=== PATIENT | female | born 1945 | race Caucasian/White ===

== ENCOUNTER → 2021-09-24 | Outpatient (CLI) | payer MEDICARE | END | disposition home or self-care (01) | LOC: LAB SHORT 14:58 | DX: L30.8 Other specified dermatitis (principal) | CPT/HCPCS: 88305 ==

== ENCOUNTER 2021-10-16 13:13 | Emergency (ER) | payer MEDICARE ==
[~2021-10-16] VITALS: Ht 162.6 cm; Wt 65.8 kg
[2021-10-16] MEDS ORDERED: LEVOTHYROXINE50 MC7 PO (15:15)
[2021-10-16] MEDS ORDERED: CALCIUM 500 MG1 EAC2 PO (15:16)
[2021-10-16] MEDS ORDERED: LISI20 PO (15:16)
[2021-10-16] MEDS ORDERED: ATOR10 PO (15:16)
[2021-10-16] MEDS ORDERED: ATEN100 PO (15:16)
[2021-10-16] MEDS ORDERED: AMLO10 PO (15:16)
[2021-10-16 16:26] LABS: Source, Urine Clean Catch
[2021-10-16 16:59] LABS: Appearance, Urine Hazy (Clear); Bilirubin, Urine Neg (Neg); Blood, Urine 5+ (Neg); Color, Urine Amber (P-Yellow); Glucose Qualitative, Urine Neg (Neg); Ketones, Urine 1+ (Neg); Leukocyte Esterase, Urine 1+ (Neg); Nitrite, Urine Pos (Neg); Protein, Urine 4+ (Neg); Urobilinogen, Urine 1+ (Normal)
[2021-10-16 17:22] LABS: Bacteria Many /hpf; Red Blood Cells, Urine 0-2 /hpf (0-2); Squamous Epithelial Cells Mod /hpf (Few)
== END 2021-10-16 17:57 | disposition home or self-care (01) ==
LOC: ER 13:13
PROVIDERS: Physician Assistant
DX: M25.551 Pain in right hip (principal); I10 Essential (primary) hypertension; E03.9 Hypothyroidism, unspecified; Z88.6 Allergy status to analgesic agent; Z79.899 Other long term (current) drug therapy; W18.30XA Fall on same level, unspecified, initial encounter
CPT/HCPCS: 73502; 81001; 87077; 87086; 87147; 87186; 99284-25; A9270

== ENCOUNTER → 2021-12-04 | Outpatient (CLI) | payer MEDICARE, OTHER | END | disposition home or self-care (01) | LOC: LAB UVN 18:40 | DX: I10 Essential (primary) hypertension (principal) ==

== ENCOUNTER → 2021-12-07 | Outpatient (CLI) | payer MEDICARE, OTHER ==
[~2021-12-07] MED LIST: ALMACONE SUSPE355 ML PO; AMLO10 PO; ATEN100 PO; ATOR10 PO; CALCIUM 500 MG1 EAC2 PO; CEPH500 PO; LEVOTHYROXINE50 MC7 PO; LISI20 PO; VISBIOME 112.51 EACH PO; VITAMIN D5000 UNIT PO
[2021-12-07 16:15] LABS: Bun/Creatinine Ratio 51.3 (12.0-20.0); Calcium, Blood 9.2 mg/dL (8.5-10.1); Creatinine, Blood 0.74 mg/dL (0.40-1.00)
== END | disposition home or self-care (01) ==
LOC: EDSTATUS 15:22 → LAB UVN 15:49
PROVIDERS: Internal Medicine
DX: E87.5 Hyperkalemia (principal); E87.1 Hypo-osmolality and hyponatremia
CPT/HCPCS: 80048

== ENCOUNTER → 2021-12-10 | Outpatient (CLI) | payer MEDICARE, OTHER | END | disposition home or self-care (01) | LOC: LAB UVN 04:36 | DX: N17.8 Other acute kidney failure (principal); N39.0 Urinary tract infection, site not specified; R33.8 Other retention of urine ==

== ENCOUNTER → 2021-12-18 | Outpatient (CLI) | payer MEDICARE, OTHER | END | disposition home or self-care (01) | LOC: LAB UVN 19:30 | DX: I10 Essential (primary) hypertension (principal); N17.8 Other acute kidney failure ==

== ENCOUNTER 2021-12-19 07:16 | Emergency (ER) | payer MEDICARE, OTHER ==
[~2021-12-19] VITALS: Ht 165.1 cm; Wt 59.0 kg
[2021-12-19 08:17] LABS: BASOPHILS ABSOLUTE AUTO 0.02 K/mm3 (0.00-0.23); BASOPHILS PERCENT AUTO 0 % (0-2); EOSINOPHILS ABSOLUTE AUTO 0.07 K/mm3 (0.00-0.68); EOSINOPHILS PERCENT AUTO 1 % (0-6); Hematocrit 18.8 % (33.0-51.0); IMMATURE GRAN ABSOLUTE AUTO 0.14 K/mm3 (0.00-0.10); IMMATURE GRAN PERCENT AUTO 2 % (0-1); LYMPHOCYTES ABSOLUTE AUTO 2.92 K/mm3 (0.84-5.20); LYMPHOCYTES PERCENT AUTO 37 % (21-46); MONOCYTES ABSOLUTE AUTO 0.88 K/mm3 (0.16-1.47); MONOCYTES PERCENT AUTO 11 % (4-13); Mean Corpuscular HGB 31.4 pg (26.0-34.0); Mean Corpuscular HGB Conc 30.9 g/dL (31.5-36.5); Mean Corpuscular Volume 102 fL (80-100); Mean Platelet Volume 10.7 fL (9.1-12.4); NEUTROPHILS ABSOLUTE AUTO 3.86 K/mm3 (1.96-9.15); NEUTROPHILS PERCENT AUTO 49 % (41-73); NRBC ABSOLUTE 0.12 K/mm3 (0.00-0.02); NRBC Auto 1.5 /100 WBC (0.0-0.2); Platelet Count 132 K/mm3 (150-400); RDW Coefficient Variation 22.5 % (11.7-14.2); RDW Standard Deviation 64.7 fL (35.1-46.3); Red Blood Cell Count 1.85 M/mm3 (3.80-5.20); White Blood Cell Count 7.89 K/mm3 (4.00-11.30)
[2021-12-19 08:20] LABS: Hemoglobin 5.8 g/dL (11.5-16.0)
[2021-12-19 08:30] LABS: Albumin, Blood 2.9 g/dL (3.4-5.0); Bilirubin, Total 0.7 mg/dL (0.1-1.0); Bun/Creatinine Ratio 40.3 (12.0-20.0); Calcium, Blood 8.7 mg/dL (8.5-10.1); Creatinine, Blood 1.29 mg/dL (0.40-1.00); Magnesium, Blood 2.3 mg/dL (1.6-2.4); Potassium, Blood 4.5 mmol/L (3.5-5.5); Total Protein, Blood 5.9 g/dL (6.4-8.2)
[2021-12-19 11:58] LABS: Performing Lab BLOODWORKS; Test Name ABID
--- NOTE | 2021-12-19 16:26 | NUR ---
ER CONSULT requested. Pt in room #18, pleasantly confused and conversant. She does not appear to be in distress or pain. Case conferenced with pt's RN and provider in ER for current status, communication with family, plan of care and concerns. T/c to pt's proxy medical decision maker, her brother Franck Alva [phone]. Provider had already spoken with him and I reviewed that conversation and confirmed that Franck feels DNR Code status is most appropriate. I offered to do a POLST for documentation of goals and wishes, which Franck did want to do. Regarding medical intervention, Franck would like Jackeline to have supportive EOL care rather than have her readmitted to the hospital or sent to the ER again. I asked if he would like comfort care or hospice support at [facility]. He replied yes. Newly Completed POLST reviewed and signed by Provider, reviewed with RN. Copies made for medical records and ER chart. Original placed in chart to be sent to RN with pt when she is d/c'd after PRBCs infused. Pt was sent to ER by RN today and was found to have a critical H&H and positive GI bleed per stool guiac. Provider arranged transport to another hospital with GI coverage but family declined to transport pt to higher level of care. Brother feels pt's dementia, frailty, ongoing failure to thrive and poor quality of life would not be improved with agressive tx of GI bleed. Listening and support offered. RN asked to call brother to confirm that pt has been transferred back to [facility] per his request. Provider updated on my conversation with family and their request for comfort measures only and DNR code status.
== END 2021-12-19 18:50 | disposition home or self-care (01) ==
LOC: ER 07:16
PROVIDERS: Physician Assistant
DX: D64.9 Anemia, unspecified (principal); K92.2 Gastrointestinal hemorrhage, unspecified; F03.90 Unspecified dementia, unspecified severity, without behavioral disturbance, psychotic disturbance, mood disturbance, and anxiety; I10 Essential (primary) hypertension; Z88.8 Allergy status to other drugs, medicaments and biological substances; Z79.899 Other long term (current) drug therapy; Z66 Do not resuscitate
CPT/HCPCS: 36415; 80053; 83735; 85025; 86850; 86880; 86900; 86901; 86922; 93005; 93010; C9113; J7030; P9016

== ENCOUNTER → 2021-12-21 | Outpatient (CLI) | payer MEDICARE, OTHER | END | disposition home or self-care (01) | LOC: LAB UVN 21:44 | DX: Z01.89 Encounter for other specified special examinations (principal) ==